=== PATIENT | female | born 1970 | race Caucasian/White ===

== ENCOUNTER → 2020-05-27 10:45 | Outpatient (BNVA) | payer MEDICARE, MEDICAID, SELFPAY | PROVIDERS: PCP Internal Medicine; Referring Provider Internal Medicine; Visit Provider Hospitalist | DX: R91.8 Other nonspecific abnormal finding of lung field (principal); R94.8 Abnormal results of function studies of other organs and systems; J44.9 Chronic obstructive pulmonary disease, unspecified | CPT/HCPCS: 99212 ==

== ENCOUNTER 2020-06-04 09:29 | Outpatient (REF) | payer MEDICARE, MEDICAID, SELFPAY ==
--- NOTE | 2020-06-04 09:36 | CT_ITS ---
EXAMINATION: CT CHEST WITHOUT CONTRAST CLINICAL INFORMATION: Follow-up pulmonary nodules COMPARISON: Previous chest CT October 2019 TECHNIQUE: Multidetector volumetric CT imaging of the chest was done. Axial MIP volume rendering provided. Sagittal and coronal reformatted images were obtained. This CT examination was performed using dose optimization techniques as appropriate, variously including the following: *Automated exposure control *Adjustment of mA and/or kV according to patient size (this includes techniques or standardized protocols for targeted exams where dose is matched to indication/reason for exam; i.e. extremities or head) *Use of iterative reconstruction technique DLP: 134 mGy-cm FINDINGS: Center Receptionist: Hyperinflation and scoliosis. LUNGS: There is biapical pleural and parenchymal scarring. There are emphysematous changes seen greatest at the lung bases. Small pulmonary nodules and peripheral or subpleural parenchymal densities or areas of pleural thickening are unchanged. Largest areas measure 9 x 12 mm in the left upper lobe adjacent to the fissure axial image 277 series 7 and 5 x 15 mm in the left lower lobe axial image 351 series 7. No new pulmonary nodule or abnormal parenchymal density is seen. No endobronchial or endotracheal lesion is seen. No bronchiectasis is seen. MEDIASTINUM: The mediastinum is normal. PLEURA: There is no pleural effusion. AXILLA: There are bilateral breast implants. No chest wall mass or enlarged axillary lymph nodes are seen. UPPER ABDOMEN: Unremarkable. OSSEOUS STRUCTURES: There are degenerative changes of the spine and scoliosis.. CT/CT chest wo con IMPRESSION: Emphysema. This is greatest at the lung bases. Stable small pulmonary nodules and areas of pleural thickening or pleural parenchymal scarring.
== END 2020-06-04 09:30 | disposition home or self-care (01) ==
LOC: HO.CT 09:29
PROVIDERS: PCP Internal Medicine; Visit Provider Hospitalist
DX: R91.8 Other nonspecific abnormal finding of lung field (principal)
CPT/HCPCS: 71250

== ENCOUNTER 2020-08-05 13:43 | Outpatient (REF) | payer MEDICARE, MEDICAID, SELFPAY ==
[2020-08-05 15:14] LABS: MANUAL DIFF FLAG NO
[2020-08-05 15:17] LABS: Hematocrit 44.4 % (37-47); Hemoglobin 15.1 g/dl (12.0-16.0); Imm Gran Abs Auto 0.01 X10*3/uL (0.00-0.03); Imm Gran Pct Auto 0.1 % (0.0-0.4); Lymphocytes Absolute Auto 2.1 X10*3/uL (1.2-4.9); Lymphocytes Percent Auto 28.1 % (20-40); Mean Corpuscular Hemoglobin 30.8 pg (27.0-33.0); Mean Corpuscular Volume 90.6 fL (80-98); Mean Platelet Volume 8.4 fL (9.4-12.3); Monocytes Absolute Auto 0.5 X10*3/uL (0.1-1.2); Monocytes Percent Auto 7.2 % (2-11); Neutrophils Absolute Auto 4.8 X10*3/uL (2.0-8.3); Neutrophils Percent Auto 64.6 % (45-73); Platelet Count 420 X10*3/uL (160-400); Red Cell Distribution Width 13.4 % (11.0-16.0); White Blood Count 7.5 X10*3/uL (4.8-10.8)
[2020-08-05 16:00] LABS: Erythrocyte Sedimentation Rate 12 MM/HR (0-20)
[2020-08-10 14:57] LABS: Asperg fumigatus Precip Abs NEGATIVE (NEGATIVE); Micropoly faeni Abs NEGATIVE (NEGATIVE); Pigeon serum Abs NEGATIVE (NEGATIVE); Saccharo pora viridis Abs NEGATIVE (NEGATIVE); Thermo candidus Abs NEGATIVE (NEGATIVE); Thermoa vulgaris #1 NEGATIVE (NEGATIVE)
== END 2020-08-05 13:44 | disposition home or self-care (01) ==
LOC: HO.LAB 13:43
PROVIDERS: PCP Internal Medicine; Visit Provider Hospitalist
DX: R91.8 Other nonspecific abnormal finding of lung field (principal); J98.4 Other disorders of lung; J41.0 Simple chronic bronchitis; F17.210 Nicotine dependence, cigarettes, uncomplicated; Z79.899 Other long term (current) drug therapy
CPT/HCPCS: 36415; 82785; 85025; 85652; 86003; 86331; 86606; 86609; 99212

== ENCOUNTER → 2020-09-20 13:44 | Outpatient (BNVA) | payer MEDICARE, MEDICAID, SELFPAY | PROVIDERS: PCP Internal Medicine; Visit Provider Hospitalist | DX: J41.0 Simple chronic bronchitis (principal); J98.4 Other disorders of lung; R91.8 Other nonspecific abnormal finding of lung field | CPT/HCPCS: 99212 ==

== ENCOUNTER → 2021-02-27 13:13 | Outpatient (BNVA) | payer MEDICARE, MEDICAID, SELFPAY | PROVIDERS: PCP Internal Medicine; Visit Provider Hospitalist | DX: J41.0 Simple chronic bronchitis (principal); J98.4 Other disorders of lung; J02.9 Acute pharyngitis, unspecified; R91.8 Other nonspecific abnormal finding of lung field | CPT/HCPCS: 99212 ==

== ENCOUNTER 2021-05-20 13:14 | Outpatient (REF) | payer MEDICARE, MEDICAID, SELFPAY ==
--- NOTE | ~2021-05-20 | CT_ITS ---
EXAMINATION: CT CHEST WITHOUT CONTRAST CLINICAL INFORMATION: Follow-up pulmonary nodules COMPARISON: Previous chest CT scans most recent May 2020 TECHNIQUE: Multidetector volumetric CT imaging of the chest was done. Axial MIP volume rendering provided. Sagittal and coronal reformatted images were obtained. This CT examination was performed using dose optimization techniques as appropriate, variously including the following: *Automated exposure control *Adjustment of mA and/or kV according to patient size (this includes techniques or standardized protocols for targeted exams where dose is matched to indication/reason for exam; i.e. extremities or head) *Use of iterative reconstruction technique DLP: 138 mGy-cm FINDINGS: LUNGS: There is mild biapical pleural parenchymal scarring. There is evidence of emphysema. The peripheral or subpleural parenchymal densities appear unchanged. The largest measures 1 x 1.2 cm adjacent to the left pleural fissure. There is a 3 mm calcified right lower lobe pulmonary nodule adjacent to the diaphragm that is stable. No new pulmonary nodule is seen. MEDIASTINUM: The mediastinum is normal. PLEURA: There is no pleural effusion. No pleural mass or thickening. AXILLA: No lymphadenopathy. There are bilateral breast implants. UPPER ABDOMEN: Unremarkable. OSSEOUS STRUCTURES: There are degenerative changes of the spine and scoliosis. CT/CT chest wo con IMPRESSION: Emphysema. Stable peripheral or subpleural parenchymal densities from previous exams. Fleischner guidelines were followed.
== END 2021-05-20 13:15 | disposition home or self-care (01) ==
LOC: HO.CT 13:14
PROVIDERS: PCP Internal Medicine; Visit Provider Hospitalist
DX: R91.8 Other nonspecific abnormal finding of lung field (principal)
CPT/HCPCS: 71250

== ENCOUNTER → 2021-06-27 12:48 | Outpatient (BNVA) | payer MEDICARE, MEDICAID, SELFPAY | PROVIDERS: PCP Internal Medicine; Visit Provider Hospitalist | DX: J43.1 Panlobular emphysema (principal); R91.8 Other nonspecific abnormal finding of lung field; Z79.899 Other long term (current) drug therapy | CPT/HCPCS: 94618; 99212 ==

== ENCOUNTER → 2022-03-27 13:03 | Outpatient (BNVA) | payer MEDICARE, MEDICAID, SELFPAY | PROVIDERS: PCP Internal Medicine; Visit Provider Hospitalist | DX: R91.8 Other nonspecific abnormal finding of lung field (principal); J43.1 Panlobular emphysema | CPT/HCPCS: 99212 ==

== ENCOUNTER 2022-04-13 10:39 | Outpatient (REF) | payer MEDICARE, MEDICAID, SELFPAY ==
--- NOTE | ~2022-04-13 | CT_ITS ---
EXAMINATION: CT CHEST WITHOUT CONTRAST CLINICAL INFORMATION: Follow-up pulmonary nodules COMPARISON: Previous chest CT scans most recent May 2021 TECHNIQUE: Multidetector volumetric CT imaging of the chest was done. Axial MIP volume rendering provided. Sagittal and coronal reformatted images were obtained. This CT examination was performed using dose optimization techniques as appropriate, variously including the following: *Automated exposure control *Adjustment of mA and/or kV according to patient size (this includes techniques or standardized protocols for targeted exams where dose is matched to indication/reason for exam; i.e. extremities or head) *Use of iterative reconstruction technique DLP: 124 mGy-cm FINDINGS: LUNGS: There is evidence of emphysema. There is biapical pleural and parenchymal scarring. Bilateral pulmonary nodules are stable. Largest pulmonary nodule is a peripheral or subpleural left nodule adjacent to the fissure measuring 1.1 x 1.2 cm axial image 217 series 5. No new pulmonary nodule. No endobronchial or endotracheal lesion. MEDIASTINUM: The mediastinum is normal. CORONARY ARTERY CALCIFICATION: None visualized on this study. PLEURA: There is no pleural effusion. No pleural mass or thickening. AXILLA: No lymphadenopathy. Bilateral breast implants. UPPER ABDOMEN: Unremarkable. OSSEOUS STRUCTURES: There are degenerative changes of the spine and scoliosis. CT/CT chest wo IV con IMPRESSION: Severe emphysema. Biapical pleural and parenchymal scarring. Stable bilateral pulmonary nodules. Fleischner guidelines were followed.
== END 2022-04-13 10:40 | disposition home or self-care (01) ==
LOC: HO.CT 10:39
PROVIDERS: Visit Provider Hospitalist
DX: R91.8 Other nonspecific abnormal finding of lung field (principal)
CPT/HCPCS: 71250

== ENCOUNTER 2022-04-21 10:36 | Outpatient (REF) | payer MEDICARE, MEDICAID, SELFPAY | END 2022-04-21 10:37 | disposition home or self-care (01) | LOC: HO.RESP 10:36 | PROVIDERS: PCP Internal Medicine; Visit Provider Hospitalist | DX: J43.1 Panlobular emphysema (principal) | CPT/HCPCS: 94060; 94727; 94729 ==

== ENCOUNTER → 2022-06-04 13:16 | Outpatient (BNVA) | payer MEDICARE, MEDICAID, SELFPAY | PROVIDERS: PCP Internal Medicine; Visit Provider Hospitalist | DX: J43.1 Panlobular emphysema (principal); R91.8 Other nonspecific abnormal finding of lung field | CPT/HCPCS: 94618; 99212 ==

== ENCOUNTER → 2022-09-15 14:29 | Outpatient (BNVA) | payer MEDICARE, MEDICAID, SELFPAY | PROVIDERS: PCP Internal Medicine; Visit Provider Hospitalist | DX: J43.1 Panlobular emphysema (principal); R91.8 Other nonspecific abnormal finding of lung field | CPT/HCPCS: 94618; 99212 ==

== ENCOUNTER → 2022-09-24 13:54 | Outpatient (REF) | payer MEDICARE, MEDICAID, SELFPAY ==
--- NOTE | 2022-09-24 13:56 | CA_ITS ---
Transthoracic Echo with Contrast Patient (Last, First, Middle): Shirley Metz L Gender: Female Date of : 1970 Age: 52 Procedure Date: 09/24/2022 Procedure Type: Transthoracic Echo with Contrast Location: OP Height: 160.02 cm Weight: 65.77 kg BSA: 1.69 m2 Heart Rate: 90 bpm BP: 120 / 77 mmHg Marine Engine Machinist: ABIDA Referring MD: Efra Guajardo MD Airplane Mechanic Apprentice: Jona Celeste MD Symptoms: I27.20 - Pulmonary hypertension, unspecified Study Quality: Adequate ECG Rhythm: Sinus Conclusions: - 1. Normal LV systolic function with grade 1 diastolic dysfunction 2. Normal cardiac valvular Dopplers 3. Normal RV systolic pressure 4. No gross pericardial effusion Findings Procedure Information Contrast agent, definity, is being given per protocol without apparent complications. Left Ventricle Normal left ventricular size, thickness, and systolic function. The visually estimated ejection fraction is between 60-65%. Spectral Doppler is indicative of an impaired relaxation filling pattern. E/E prime ratio is <8, consistent with normal filling pressures. Right Ventricle Normal right ventricular cavity size. There is normal right ventricular systolic function. Atria The left atrium is normal in size. Interatrial shunt cannot be excluded. The right atrium was not well visualized. Aortic Valve The aortic valve structure and function is likely normal. There is no aortic valve stenosis. There is no aortic valve regurgitation. Mitral Valve Likely normal mitral valve structure and function. There is trace mitral valve regurgitation. There is no mitral valve stenosis. Pulmonic Valve The pulmonic valve is likely normal. Tricuspid Valve Likely normal tricuspid valve structure and function. There is trace tricuspid valve regurgitation. The right ventricular systolic pressure is normal. The right ventricular systolic pressure is 29 mmHg. Normal right atrial pressure. There is no evidence of pulmonary hypertension. Great Vessels All visible segments of the aorta are normal in size. The pulmonary artery was not well visualized. Venous The inferior vena cava is normal in size and collapses greater than 50% with inspiration. Pericardium/Pleural The pericardium was not well visualized. There is no evidence of pericardial effusion. Prior Study Comparison No prior study available for comparison. Measurements 2D Linear Measurements IVSd: 0.90 0.6-0.9/0.6-1.0 cm LVIDd: 4.02 3.9-5.3/4.2-5.9 cm LVIDd Index: 2.38 2.4-3.2/2.2-3.1 cm/m2 LVIDs: 2.94 2.0-3.6 cm LVPWd: 0.80 0.7-1.1 cm LA Diam: 2.10 2.7-3.8/3.0-4.0 cm LAIDs Index: 1.24 1.5-2.3 cm/m2 LV Mass: 126.87 67-162/88-224 g LV Mass Index: 75.07 43-95/49-115 g/m2 LVOT Diam: 1.90 3.0+(-)1.3 cm 2D Systolic Function EF 4C: 58.50 >55% EF 2C: 62.00 >55% EF BiP: 60.00 >55% Mitral Valve MV Pk E: 0.80 MV PK A: 0.85 MV Decel Time: 267.00 E/A: 0.90 E'Lateral: 11.20 E'Medial: 7.62 E/E' Med: 10.50 E/E' Lat: 7.20 PHT: 78.00 MVA PHT: 2.82 Decel [place]: 3.00 Aortic Valve AoV Pk Lon: 1.56 AoV Mn Lon: 1.00 AoV VTI: 0.30 AoV Pk Grad: 10.00 Aov Mn Grad: 5.00 [place] Cont.VTI: 2.03 LVOT LVOT Pk Lon: 1.09 LVOT Mn Lon: 0.70 LVOT VTI: 0.21 LVOT Pk Grad: 5.00 LVOT Mn Grad: 2.00 LVOT Diam: 1.90 LVOT Area: 2.84 Diastolic Function MV Pk E: 0.80 MV Pk A: 0.85 E/A: 0.90 E'Medial: 7.62 E/E' Med: 10.50 E' Laterial: 11.20 E/E' Lat: 7.20 Right Ventricle TAPSE (mm): 20.70 TVS' Lon: 12.20 Tricuspid Valve TR Pk Lon: 2.55 TR Pk Grad: 26.00 RA Press: 3.00 RVSP: 29.00 Great Vessels Aorta Sinus of Valsalva: 2.85 2.0-3.5 cm Ao Asc: 3.00 2.1-3.4 cm Updated in Other Vendor System with Status of Final Jona Celeste MD electronically signed on 09/25/2022 11:38:31 AM with status of Final
== END ==
LOC: HO.CARD 13:54
PROVIDERS: PCP Internal Medicine; Visit Provider Hospitalist
DX: I27.20 Pulmonary hypertension, unspecified (principal); J44.9 Chronic obstructive pulmonary disease, unspecified
CPT/HCPCS: 93306; Q9957

== ENCOUNTER 2023-01-15 14:11 | Outpatient (AMB) | payer MEDICARE, MEDICAID, SELFPAY ==
[2023-01-15 14:29] VITALS: BP 132/78; PULSE 69; O2SAT 96; BMI 22.1
--- NOTE | 2023-01-15 14:29 | MHC.OFFVIS ---
Intake Vital Signs 01/15/23 14:29 Height 5 ft 3 in Weight 125 lb BMI 22.1 BP 132/78 Blood Pressure Location Rt brachial Position Sitting Pulse 69 Pulse Source Pulse Oximeter Pulse Oximetry (%) 96 Oxygen Delivery Method Room Air Intake Visit Reasons: copd Food Service Worker Required: No Allergies No Known Allergies Allergy (Verified 01/15/23 14:32) HPI HPI Comments History of Present Illness Details The patient is a 52-year-old woman with a known history of pulmonary nodules in addition to COPD. She has been on the Anoro with very good effect. She still has issues with air trapping and has been trying the per sleep breathing. Also give her stress so she can use that to assist with the per sleep breathing. She is not interested in pulmonary rehabilitation at this time. In meantime she does have pulmonary nodules noted on CAT scan. We need to make sure she has a repeat CT scan in the coming months before her next visit. She continues to have dyspnea on exertion [id number] severity. She has not had to use her rescue inhaler. Usually her symptoms improved rest. She could not try to increase her exercise activity and continue working with her breathing exercises. 11/23/2019 the patient is here for pulmonary follow-up visit. Overall she is doing well. She still has some dyspnea on exertion specially in the hot humid days. Moderate severity. She does respond well to her respiratory therapy which she uses regularly. She has underlying pulmonary nodules and she did undergo a CT scan of the chest back in October demonstrating multiple pulmonary nodules in addition to allergic density in the left hemithorax in the periphery. Which is more than a cm. She did have this before but some of the nodules are indeed new. She also has basilar emphysema. We did fall over for the alpha-1 antitrypsin mutation with the DNA swab. 06/09/2022 the patient is here for a pulmonary follow-up visit. The patient overall is doing about the same. She continues to have dyspnea on exertion. [id number] severity. She stays active however. She likes to ride her bike. She continues to respond well to the respiratory regimen. She feels actually like she is breathing better Overall. We did look at her CT scan of the chest demonstrating extensive emphysema. Her pulmonary nodules are stable. Also, her pulmonary function studies are consistent with a COPD and significant air trapping. During the office visit we also took for 6 minute walk test the patient did qualify for oxygen. We did talk about again about alternatives 1 forward. She is not interested right now in lung transplant evaluation. She is interesting considering lung volume reduction interventions. Therefore I did explain to her that we can refer her to a tertiary hospital with a can offer these therapies. In the meantime she continues to participate in pulmonary rehabilitation online. 09/15/2022 the patient is here for a pulmonary follow-up visit. The patient has been feeling better. Her current respiratory regimen has been affecting beneficial. She has been using her oxygen although she has a hard time carry in the continues oxygen. Therefore today we had undergo another 6 minute walk test. The patient did very well initially on room air saturating about 94% at rest. With activity she does desaturate down to 86% on room air. We did place her on 2 L pulse and she was able to maintain a pulse ox of 92% through the ambulation which is reassuring. Will request a portable oxygen concentrator from the [employer] for better portability outside of her home. The patient does have significant scoliosis and difficult to carry oxygen and also the oxygen tanks do not give her enough portability in view of her long travels. In the meantime though, I will request the cylinders with a conserving valve in order for her to start with smaller oxygen canister while she waits for the Portable oxygen concentrator. the patient continues to be evaluated at [facility] for lung volume reduction interventions. She will be undergoing a V/Q scan soon. They are also requesting an echocardiogram and an ABG which will do here [place] and then provide them with the results. She is also set up for a CT scan of the chest on [facility] to follow-up with the pulmonary nodules. Patient is not interested in lung transplantation at this time though this is a conversation needs to be continued. 01/15/2023 the patient is here for a pulmonary follow-up visit. Overall the patient has been doing well. She is responding well to the current respiratory regimen. She does have the oxygen available. She still staying active riding a motorcycle. She did go to [place] and she had a full workup for the evaluation for the lung volume reduction intervention. She has not heard yet if she is going to be a candidate. We did reach out to [place] and they will be calling her to give her an update and they fax over progress notes in order for us to have available as well. In the meantime she continues his current respiratory regimen. Patient should continue participating in pulmonary rehabilitation. I did try to encourage her. The patient still is very active she maintains a good BMI and is responding well to the respiratory therapy and supplemental oxygen. [facility] Medical History (Updated 06/29/21 @ 21:39 by Efra Guajardo MD) Chronic restrictive lung disease COPD (chronic obstructive pulmonary disease) Pulmonary nodules Social History (Updated 06/27/21 @ 13:02 by NOEMÍ Juarez) Patient Tobacco Use Status: Former Tobacco user Tobacco use type: Cigarette Years Smoked: 11 years Review of Systems Const Denies night sweats ENT Denies change in voice, Denies lip swelling, Denies mouth pain and Denies tongue swelling Card Denies chest pain and Reports dyspnea on exertion Resp Denies chest congestion, Reports cough and Reports dyspnea on exertion GI Denies abdominal pain Musc Denies no additional complaints Neuro Denies Neuro-related abnormal movements Psych Denies no additional complaints Jonas/Lymph Denies easy bleeding and Denies lymphadenopathy Aller/Immun Denies lip swelling and Denies tongue swelling Physical Exam Vital Signs: Last Vital Signs Pulse 69 01/15/23 14:29 BP 132/78 01/15/23 14:29 Pulse Ox 96 01/15/23 14:29 Oxygen Delivery Method Room Air 01/15/23 14:29 BMI result Body Mass Index 22.1 Const General: alert HEENT Throat: Yes posterior oropharynx abnormal Neck Neck: Yes normal visual inspection, Yes full ROM and Yes no lymphadenopathy Chest Chest palpation & inspection: normal inspection of the chest Resp Auscultation: no crackles, no rales, no rhonchi, no wheezes and diminished lung sounds Cardio Rate: regular rate Rhythm: regular rhythm Heart sounds: S1 normal heart sound present and S2 normal heart sound present GI Palpation (GI): Soft to palpation and nontender Auscultation: normal bowel sounds Skin General skin exam: rashes and/or lesions noted Assessment & Plan Assessment & Plan (1) COPD (chronic obstructive pulmonary disease): Comment: mosaic pattern with significant small airways disease Code(s): J44.9 - Chronic obstructive pulmonary disease, unspecified Qualifiers: COPD type: emphysema Emphysema type: panlobular Qualified Code(s): J43.1 - Panlobular emphysema (2) Pulmonary nodules: Code(s): R91.8 - Other nonspecific abnormal finding of lung field Plan Oxygen revision: change to 2L/pulse with activity. Requesting B cylinders. Also requesting POC as the patient will need longer portability outside of the home. Continue respiratory therapy; ISAAC Claire continue Singulair Minimize exposure to carpets hypo allergenic covers for her bed cont on-line pulmonary rehab [place] [facility] referral for Xephyr valves, awaiting decision F/U 4-6 months Coding Level of Care Code Est Pt Level 4 (36113) Diagnoses COPD (chronic obstructive pulmonary disease) J43.1 COPD type: emphysema Emphysema type: panlobular Pulmonary nodules R91.8 Time Spent (min) 18
== END 2023-01-15 14:56 | disposition home or self-care (01) ==
PROVIDERS: PCP Internal Medicine; Visit Provider Hospitalist
DX: J43.1 Panlobular emphysema (principal); R91.8 Other nonspecific abnormal finding of lung field
CPT/HCPCS: 99214

== ENCOUNTER → 2023-01-15 14:11 | Outpatient (BNVA) | payer MEDICARE, MEDICAID, SELFPAY | PROVIDERS: PCP Internal Medicine; Visit Provider Hospitalist | DX: J43.1 Panlobular emphysema (principal); R91.8 Other nonspecific abnormal finding of lung field | CPT/HCPCS: 99212 ==